=== PATIENT | female | born 2000 | race Caucasian/White ===

== ENCOUNTER 2018-09-08 14:43 | Observation (INO) | payer OTHER, SELFPAY ==
[2018-09-08 14:43] VITALS: BP 139/79; PULSE 110; RESP 20; TEMP 37.2; O2SAT 97
[2018-09-08 14:45] VITALS: BP 139/79; PULSE 110; RESP 20; TEMP 37.2; O2SAT 97
[2018-09-08] MEDS: Ibuprofen 600 MG TAB PO ×2 (16:22→22:27)
[2018-09-08] MEDS: Normal Saline 1,000 ML 30 ML IV (16:29)
--- NOTE | 2018-09-08 16:36 | HPE_ITS ---
DATE OF ADMISSION: September 08, 2018 PROBLEM LIST: 1. Cellulitis of face. 2. 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 ASSESSMENT: 1. Wendy is a 18-year-old young lady who presents with a cellulitis of her face that has been unresp onsive to outpatient therapy. Most likely this is Staph, Strep or a MRSA. She denies any history of cat bites, cat scratches, dog bites or dog scratches. This has gotten worse despite the Bactrim DS and I feel she needs to be admitted to the hospital for IV antibiotics. 2. Wendy has an irregular heartbeat and this has not been noted previously. We will get an EKG to e valuate this. She has been asymptomatic from this. PLAN: 1. Admit to the hospital. 2. We will get an IV in her with normal saline. 3. Wendy will be started on Ceftaroline, which will cover MRSA, Staph, Strep and some gram-negatives . This dosing will be 600 mg q12h. 4. I will check the results of her culture and as we get results, we will change her antibiotic to na rrow coverage, if possible. 5. We will have her apply warm, moist heat to her face. 6. We will obtain an EKG. HISTORY OF PRESENT ILLNESS: Wendy is a 18-year-old young lady who is being admitted to the hospital with a cellulitis of her face that has been unresponsive to outpatient therapy. Wendy had been well until last when she woke up with a little pimple on the skin above her left lip. She did not have any sores on her lips. She has had some cold sores in the past, but this was not typical. She squeezed it a bit and did not get any pus out. Over the next 24 to 48 hours t he redness got bigger and she developed some pus that really did not drain. [facility] and they looked at her but did not culture anything. She was put on Bactrim double-strength tablets at a dose of one tablet twice a day. Over the ensuing several days she has had continued swelling and redness of her upper lip that has not really improved and perhaps has enma en a little bit worse. There has been no drainage. She has put some heat on it without any real imp rovement. She has had some redness extending from the corner of her left lip extending down to her j aw, which is a bit sore. It was a bit more red yesterday, but it still continues to be red. She has not had any fevers. It has been a bit uncomfortable to eat, but she is drinking well. There has be en no drainage of any substance that is foul-tasting into her mouth. She has not had any tooth pain. She has not previously had any difficulties with skin infections. She has not been on any other tr eatment other than the antibiotics for this infection. Wendy is a student at [employer]. 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 She has otherwise been healthy. She gets Depo-Provera every twelve weeks. Her immunizat ions are up to date. She is not allergic to any medications, but when she does eat mangoes, she will get swelling of her mouth. She does not have an Epi pen and she has not had any problems with avoid ing mangoes. She has not previously been hospitalized overnight. She did have some vomiting and a m igraine headache a year ago, for which she received IV fluids and medications in the Emergency Room. Wendy denies any shortness of breath or dizziness. She has not previously noted to have an irregula r heartbeat and no one has ever mentioned this to her. She is able to exercise without any difficult ies. Wendy has not had any exposures to cats or dogs with bites or scratches. OBJECTIVE: Wendy weighs about 145 pounds. She is afebrile. Her blood pressure is 139/79. Her pul se is 110 and her respiratory rate is 20 with an 02 saturation of 97%. She is alert and in no distre ss. Her SKIN is pink and well-perfused. She has a lesion involving the skin above her LEFT UPPER LIP. This lesion is approximately 3 cm in l ength and about 2 cm in width. In the middle of it she has an area that is crusted with what looks l rafael to be some pus beneath it, that is probably about 3 mm x 7 mm in width and length. I was able to put a needle into it and I got a small amount of bloody material which was cultured and has been sen t to the lab. Most of the area is firm and it is not fluctuant. She has some swelling inside of her mouth and she has some swelling of the left upper lip. There is no sign of any drainage in the mout h. The gums look normal and there is no sign of any dental abscess. She has an area of faint erythe ma that is about a centimeter in width that extends from her left corner of her mouth down to the ang le of her jaw. This area is about 4 cm in length. This area is mildly tender to palpation. She humphreys s not have any submandibular or submental nodes. She has no anterior cervical adenopathy. Her mouth is moist. There are no lesions of the lip per se. Her TM's are proctor. Her extraocular movements are intact. Her NOSE is dry. Her nose is pierced on the left side and there is no redness. Her NECK is supple without adenopathy. CARDIAC exam reveals an irregular rhythm, which she has not previously noted. Her LUNGS are clear. Her ABDOMEN is soft and nontender.
[2018-09-08 19:22] VITALS: BP 159/70; PULSE 75; RESP 18; TEMP 36.8; O2SAT 99
--- NOTE | 2018-09-08 21:56 | NUR.NOTE ---
Nursing Note: PT. reports that the spot of cellulitis feels tighter, like it might start draining. Pt. reports no difficulty breathing, no changes in vision, no increase in pain at this time. Pt. given a warm compress for comfort.
[2018-09-08 23:50] VITALS: BP 117/75; PULSE 70; RESP 16; TEMP 36.7; O2SAT 98
[2018-09-09 07:50] VITALS: BP 111/69; PULSE 65; RESP 16; TEMP 37.1; O2SAT 98
--- NOTE | 2018-09-09 08:58 | INITIAL_ITS ---
- If Service Date Differs Date of service: 09/09/18 Time of Service: 08:56 Care Management Initial Assess REASON FOR HOSPITALIZATION:: Cellulitis PAST MEDICAL HISTORY/PAST SURGICAL HISTORY:: Migraines. 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 Her mother and siblings live locally. Wendy is indepedent with transportation and caring for herself. CURRENT FUNCTIONAL STATUS:: Wendy makes good eye contact. She continues to have some swelling near her left side of her mouth where the cellutlis is. She states she went to Urgent Care in [place], [place] prior to returning home to see her primary care. She states the area is much improved since starting the IV antibioitcs. Wendy is planning on returning to school in the next few days. 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 Her Mom is here during assessment and supportive at the bedside. ADVANCE DIRECTIVES:: None on file Has patient been provided with information about the portal?: Yes Did the patient sign up for the portal?: No CODE STATUS:: Full Code INSURANCE COVERAGE / FINANCIAL ISSUES:: [place] [employer] CURRENT HOME/COMMUNITY SERVICES/EQUIPMENT:: None PRIMARY CARE PHYSICIAN:: POTENTIAL DISCHARGE NEEDS:: Follow up with primary care provider as directed and oral antibiotics. PATIENT/FAMILY EDUCATION NEEDS:: Discharge education, limitations and medications as directed. ANTICIPATED BARRIERS TO DISCHARGE:: None idenified TRANSPORTATION:: Via private car with family at time of discharge. PLAN:: Wendy is currently receiving IV antibiotics awaiting c/s results. She would like to return to school in the next few days. She will need a note for school at time of discharge. Anticipate she will need oral antibiotics at time of discharge and follow up with primary care as directed.
[2018-09-09 11:44] VITALS: BP 118/66; PULSE 89; RESP 18; TEMP 36.9; O2SAT 97
--- NOTE | 2018-09-09 15:05 | DSE_ITS ---
DATE OF ADMISSION: September 08, 2018 DATE OF DISCHARGE: September 09, 2018 PROBLEM: Cellulitis. HISTORY: Wendy is a 18-year-old young lady who was admitted to the hospital yesterday with a cellul itis of her face that had been unresponsive to outpatient therapy. She had developed a pimple about five days prior to admission, which got larger and three days prior to admission she was seen at an [facility] and placed on Bactrim DS twice a day. Over the ensuing days the lesion got more tender an d sore. She had no fever. I saw her in my office. We were able to get a small bit of pus out and t roxana I admitted her for IV antibiotics. She was placed on Ceftaroline and she has been receiving 600 mg every twelve hours. She has also bee n putting warm compresses to the lesion and there has been a small amount of drainage from it. Overn ight and during the day today she has had improvement in the lesion. It is not as big and it is much less sore. She had some red streaking extending from the lesion down to her chin and that has now g one. The abscess culture from admission has grown a small amount of Staph that was going to be typed today . OBJECTIVE: Wendy is alert and in no distress. Her vital signs are within normal limits. She has a cellulitis of her face above her left upper lip. This area is about 1 x 2 cm. It is purpl e-red in color. There is a small amount of scabbing and a small amount of discharge from it. It is firm and indurated. It is mildly tender. There is no redness extending from this lesion down to her jaw as there was yesterday. She has an irregular rhythm when palpating her pulse. An EKG was obtained yesterday and it shows a sinus rhythm with normal axes. She has intermittent uni focal PVC's. No rhythm strip was done, as ordered. ASSESSMENT: 1. Wendy is a young lady with a cellulitis of her face that has responded well to the IV antibiotics . It appears that a small amount of Staph is growing and I don't know if this is MRSA or sensitive t o methicillin and I will try to check on that. She has responded well to the IV antibiotics and we'r e going to give her one more dose, which will cover her for another twelve hours, and I am going to cole schmidt send her home on Cephalexin at a dose of 500 mg q.i.d. and Bactrim DS at a tablet twice a day. T will cover Staph, Strep and MRSA. 2. She should continue with warm soaks. 3. I will see her back in my office in three days, or sooner if she is having problems. 4. I will talk to a laboratory specialist about her EKG and whether any further evaluation needs to be perform ed.
[2018-09-09 16:17] VITALS: BP 121/66; PULSE 69; RESP 18; TEMP 37.6; O2SAT 95
== END 2018-09-09 18:37 | disposition home or self-care (01) ==
PROVIDERS: Admitting Provider Pediatrics; PCP Pediatrics; Visit Provider Pediatrics
DX: L03.211 Cellulitis of face (principal); I49.3 Ventricular premature depolarization; B95.61 Methicillin susceptible Staphylococcus aureus infection as the cause of diseases classified elsewhere; Z91.018 Allergy to other foods
CPT/HCPCS: 87077; 87070; 87186; 87205; 93005; 93010; G0378; J0712

== ENCOUNTER 2020-02-02 12:06 | Outpatient (REF) | payer OTHER, SELFPAY ==
--- NOTE | 2020-02-02 11:45 | PAPFT_PTH ---
PATIENT: Wendy Garcia LOC: [facility] U#:[id number] AGE/SX: 19/F ROOM: RE02/02/[address]: HECTOR Kumar : 2000 BED: DIS: 02/02/2020 SPEC #: [id number] RECD: 02/02/20 16:25 STATUS: MAMADOU REMaryjane #: [id number] YUMIKO: 02/02/20 11:[address]: Sera Ram DEPT: [facility] Cytology RECD BY: Nga Briones ENTERED: 02/02/20 16:25 SP TYPE: PAPFT OTHR DR: Dwight Burks MD Tissues: 1 - CX/ENDOCX FOR PAP SMEARS Procedures: PAP THIN PREP/UVM Screening Comments: [id number]
[2020-02-03 13:45] LABS: Chlamydia Result Negative (Negative); GC Result Negative (Negative)
== END 2020-02-02 12:26 ==
LOC: LBN 12:06
PROVIDERS: PCP Pediatrics; Visit Provider Nurse Practitioner Family
DX: Z11.3 Encounter for screening for infections with a predominantly sexual mode of transmission (principal); Z12.4 Encounter for screening for malignant neoplasm of cervix
CPT/HCPCS: 87491; 87591; 88142

== ENCOUNTER 2020-12-05 13:02 | Outpatient (REF) | payer OTHER, SELFPAY | END 2020-12-05 13:03 | disposition home or self-care (01) | LOC: LBN 13:02 | PROVIDERS: PCP Pediatrics; Visit Provider Nurse Practitioner Family | DX: N39.0 Urinary tract infection, site not specified (principal) | CPT/HCPCS: 87077; 87086; 87186 ==

== ENCOUNTER 2020-12-05 20:54 | Emergency (ER) | payer OTHER, SELFPAY ==
[2020-12-05 21:03] VITALS: BP 120/74; PULSE 74; RESP 16; TEMP 37.2; O2SAT 98
[2020-12-05 21:11] LABS: Bilirubin Negative (Negative); Blood Small (Negative); Glucose Negative (Negative); Ketones Negative (Negative); Leukocyte Esterase Small (Negative); Nitrite Negative (Negative); Urobilinogen 0.2 EU/dL (Up TO 0.2)
--- NOTE | 2020-12-05 21:18 | W.ED.GENAD ---
Discharge Plan Disposition Patient Disposition: HOME Condition: Improving Discharge Details Clinical Impression: UTI (urinary tract infection) Primary Care Provider: Dwight Burks ED Provider: Sb Moy Home Meds and New Rx's Prescriptions: New cephalexin 500 mg capsule 500 mg PO TID 7 Days Qty: 21 RF: 0 Continued medroxyprogesterone [Depo-Provera] 150 mg/mL suspension 150 mg IM Q 12 WEEKS Qty: 1 RF: 3 Discharge Instructions Instructions: Urinary Tract Infection in Women (ED) Additional Instructions: Small, frequent sips of fluids so that you maintain good hydration. Please stop the previously prescribed antibiotic, Bactrim. We will place you on the drug cephalexin/Keflex with first dose tomorrow. Use the provided Zofran if needed for nausea. Home to rest this evening. Return the emergency department for any acute concerns. May slowly advance a bland diet. Medical Decision Making This is a 20-year-old female who presents with complaint of burning and frequency of urination over nearly 1 week's time. She also states that she has had some postprandial emesis. No noted fever at home. She is otherwise been well. Patient arrives to the ER afebrile, interactive. She does demonstrate mild suprapubic tenderness on exam. Differential diagnosis includes dehydration, urinary tract infection. Must exclude biliary colic. IV access was established, patient given fluids and antiemetics. Her blood work reveals a white count of 10, adequate 41 platelets 335. Chemistries with potassium noted slightly low at 3.4. LFTs unremarkable. Positive leuk esterase in the urine. Consistent with partially treated urinary tract infection. Patient improving with fluids and antiemetic. She is given 1 g of ceftriaxone IV and I will switch her from Bactrim to Keflex as an outpatient. Lab Data Lab results reviewed: Yes I reviewed the patient's lab results. Labs: Laboratory Results - last 24 hr 12/05/20 12/05/20 12/05/20 21:04 21:20 21:20 WBC 10.50 RBC 4.71 Hgb 13.9 Hct 41.7 MCV 88.5 MCH 29.5 MCHC 33.3 RDW 12.4 Plt Count 335 MPV 9.7 Immature Gran % 0.1 Neutrophils % 58.3 Lymphocytes % 31.8 Monocytes % 8.4 Eosinophils % 0.8 Basophils % 0.6 Nucleated RBC % 0 Absolute Neutrophils 6.13 Absolute Lymphocytes 3.34 Absolute Monocytes 0.88 H Absolute Eosinophils 0.08 Absolute Basophils 0.06 Sodium 142 Potassium 3.4 L Chloride 106 Carbon Dioxide 23.9 Anion Gap 12.1 H BUN 6 L Creatinine 0.7 Estimated GFR/1.73 m2 >= 60.00 Glucose 97 Calcium 9.3 Total Bilirubin 0.8 AST 14 L ALT 18 Alkaline Phosphatase 61 Total Protein 7.5 Albumin 4.3 Urine Color Yellow Urine Clarity Sl Cloudy Urine pH 7.0 Ur Specific [place] 1.010 Urine Protein Negative Urine Ketones Negative Urine Blood Small H Urine Nitrite Negative Urine Bilirubin Negative Urine Urobilinogen 0.2 Ur Leukocyte Esterase Small H Urine RBC 0-2 Urine WBC 5-10 Ur Epithelial Cells Few Urine Crystals Negative Urine Bacteria Few Urine Casts Negative Urine Mucus Negative Ur Culture Indicated? Yes Urine Glucose Negative HPI General Mode of arrival: ambulatory. Date/Time Provider Initiated Documentation: 12/05/20 20:57. Limitations to Documentation: no limitations. Information obtained by: patient. History of Present Illness 20 year old F presents to the emergency department with the chief complaint of Urinary urgency, frequency, burning. Vomiting after eating, Quality is described as burning, and is localized to the pelvis and genitals. Patient started experiencing this day(s) No relieving factors improve symptom(s), No exacerbating factors reported . Patient notes loss of appetite and nausea/vomiting; denies fever/chills. Patient did receive the following treatments prior to arrival, other (1 dose of Bactrim) Related Data Home Medications Medication Instructions Recorded Confirmed medroxyprogesterone 150 mg/mL 150 mg IM Q 12 WEEKS #1 vial 02/02/20 12/05/20 intramuscular suspension cephalexin 500 mg PO TID 7 Days #21 cap 12/05/20 Previous Rx's Medication Instructions Recorded medroxyprogesterone 150 mg/mL 150 mg IM Q 12 WEEKS #1 vial 02/02/20 intramuscular suspension cephalexin 500 mg PO TID 7 Days #21 cap 12/05/20 Allergies Allergy/AdvReac Type Severity Reaction Status Date / Time No Known Allergies Allergy Verified 12/05/20 12:39 General Stated Complaint: Urinary OLINDA: 3 Review of Systems Narrative: No vaginal bleeding or discharge, otherwise well. 6 systems reviewed and negative. [facility] Medical History Cellulitis Face/L upper lip - ADMIT [facility] IV ANTIBIOTICS staph History of UTI Irregular heart beat Noted with admission for cellulits 09/08/18 EKG - inifocal pvcs- cardilogy said ok to watch if not having symptoms carlito allergy Menorrhagia Menstrual migraine Smoker in home outside S[place] EKG DONE 2007 - WITH FREQ PAC'S Wears glasses Surgical History wisdom tooth extraction 11/2014 Family History Mother Healthy adult Father Suicide Other Myocardial infarction maternal great uncles x4- sudden cardiac in 40s Maternal Uncle Myocardial infarction maternal uncle- sudden cardiac in 40s Brother Asthma exercise induced Social History Smoking/Tobacco Use Status: Never Smoking risk assessment performed?: Yes Alcohol Intake: current Alcohol Intake frequency: a few times a week Drug use: Never Substance use type: does not use Do you feel safe at home: Yes Do you feel safe in your relationship?: Yes Exam Narrative Exam Narrative: GEN: awake, alert, oriented 3. Pleasant, well groomed, interactive. HEAD: Normocephalic, atraumatic EYES: PERRL, EOMI NECK: Full ROM, no SARANYA, no menigismus CHEST/RESP: Nontender, clear to auscultation bilateral, no wheeze/rhonchi/rales CARDIOVASCULAR: RRR, 2+ Rad pulse bilateral ABDOMEN: Soft, suprapubic tenderness, no mass. +Bowel sounds EXT: Full ROM, no edema, no rash Neuro: Grossly normal neurologic exam, conversant, interactive. Psych: Speech fluent, thoughts congruent, affect normal Course Vital Signs Vital signs: Vital Signs Temperature 37.2 C 12/05/20 21:03 Pulse 74 12/05/20 21:03 Respiratory Rate 16 12/05/20 21:03 Blood Pressure 120/74 12/05/20 21:03 Pulse Oximetry 98 12/05/20 21:03 Temperature 37.2 C 12/05/20 21:03 Temperature Source Oral 12/05/20 21:03 Pulse 74 12/05/20 21:03 Respiratory Rate 16 12/05/20 21:03 Respiratory Effort Non-Labored 12/05/20 21:11 Blood Pressure 120/74 12/05/20 21:03 Blood Pressure Position Sitting 12/05/20 21:03 Pulse Oximetry 98 12/05/20 21:03 Oxygen Delivery Method Room Air 12/05/20 21:03 Oxygen Flow Rate 0 12/05/20 21:03 Pain Level 4 12/05/20 21:13 Lab/Test Results Lab/Test Results: POC- Test(urine) Negative
[2020-12-05] MEDS: Normal Saline 1,000 ML 1000 ML IV (21:25)
[2020-12-05 21:26] LABS: Clarity Sl Cloudy (Clear)
[2020-12-05 21:27] LABS: Bacteria Few HPF (Negative); C & S Indicated? Yes; Casts Negative LPF (Negative); Crystals Negative HPF (Negative); Epithelial Cells Few HPF (Negative); Mucus Negative (Negative); RBC 0-2 HPF (0-2)
[2020-12-05 21:32] LABS: Abs Immature Grans 0.01 10^3/uL (0.0-0.06); Absolute Basophil Count 0.06 10^3/uL (0.0-0.2); Absolute Eosinophil Count 0.08 10^3/uL (0.0-0.7); Absolute Lymphocyte Count 3.34 10^3/uL (1.2-3.4); Absolute Monocyte Count 0.88 10^3/uL (0.1-0.8); Absolute Neutrophil Count 6.13 10^3/uL (1.2-6.7); Basophils % 0.6; Eosinophils % 0.8; HCT 41.7 % (36.0-46.0); HGB 13.9 g/dL (11.2-15.7); Immature Grans % 0.1; Lymphocytes % 31.8; MCH 29.5 pg (27.0-33.0); MCHC 33.3 % (32.0-36.0); MCV 88.5 fL (80-95); MPV 9.7 fL (8.0-11.0); Monocytes % 8.4; Neutrophils % 58.3; Nucleated RBC 0 %; Platelet Count 335 10^3/uL (130-400); RBC 4.71 10^6/uL (3.93-5.22); RDW 12.4 % (11.7-14.6); RDW-SD 40.5 fL
[2020-12-05] MEDS: Ondansetron 4 MG/2 ML VIAL IVP ×2 (21:47→22:49)
[2020-12-05 21:56] LABS: ALT 18 U/L (14-59); AST 14 U/L (15-37); Albumin 4.3 g/dL (3.4-5.0); Alkaline Phosphatase 61 U/L (46-116); Anion Gap 12.1 mmol/L (3-11); BUN 6 mg/dL (7-18); Bilirubin, Total 0.8 mg/dL (0.2-1.0); CO2 23.9 mmol/L (21.0-32.0); CREATININE 0.7 mg/dL (0.55-1.02); Calcium 9.3 mg/dL (8.5-10.1); Chloride 106 mmol/L (98-107); Glucose 97 mg/dL (74-106); Potassium 3.4 mmol/L (3.5-5.1); Sodium 142 mmol/L (136-145); Total Protein 7.5 g/dL (6.4-8.2)
[2020-12-05] MEDS: cefTRIAXone 1 GM/50 ML BAG IVPB (22:07)
[2020-12-05 22:50] VITALS: BP 111/65; PULSE 52; RESP 16; TEMP 36.9; O2SAT 99
[2020-12-05] MEDS: Ondansetron O.D.T. 4 MG TABEF, 3 TABS/BTL PO (22:50)
--- NOTE | 2020-12-07 06:37 | NUR.NOTE ---
Nursing Note: Patient placed on care management referral to establish adult PCP per Dr. Moy.
--- NOTE | 2020-12-08 10:58 | PDOC.ERCMPRO ---
- If Service Date Differs Date of service: 12/08/20 Time of Service: 10:58 Care Management Progress Note Wendy is seen in the ED for a UTI on 12/05/20. At the request of ED provider, CAROLYN coordinates a referral to HECTOR Dickson, of [facility], on-call provider, to assist Wendy in obtaining a follow up appointment and in establishing care with a PCP. She has [employer] for insurance.
== END 2020-12-05 22:50 | disposition home or self-care (01) ==
PROVIDERS: Emergency Provider Emergency Medicine; PCP Pediatrics
DX: N39.0 Urinary tract infection, site not specified (principal)
CPT/HCPCS: 36415; 80053; 81025; 87077; 96361; 96365; 96375; 99284; 81003; 81015; 85025; 87086; 87186; 99283; J0696; J2405; J3490

== ENCOUNTER 2021-01-23 18:57 | Outpatient (REF) | payer OTHER, SELFPAY ==
[2021-01-25 13:55] LABS: COVID-19 RT-PCR UVMMC Result Negative (Negative)
== END 2021-01-23 18:58 | disposition home or self-care (01) ==
LOC: LBN 18:57
PROVIDERS: PCP Pediatrics; Visit Provider Physician Assistant
DX: J02.9 Acute pharyngitis, unspecified (principal); Z20.822 Contact with and (suspected) exposure to COVID-19
CPT/HCPCS: U0003; 87070; 87186

== ENCOUNTER 2021-01-27 15:32 | Emergency (ER) | payer OTHER, SELFPAY ==
[2021-01-27 15:37] VITALS: BP 110/69; PULSE 99; RESP 18; TEMP 36.8; O2SAT 98
[2021-01-27 15:50] LABS: Bilirubin Negative (Negative); Blood Negative (Negative); Clarity Clear (Clear); Glucose Negative (Negative); Ketones 40 mg/dL (Negative); Leukocyte Esterase Negative (Negative); Nitrite Negative (Negative); Urobilinogen 0.2 EU/dL (Up TO 0.2); pH 5.5 (5-8)
--- NOTE | 2021-01-27 16:03 | ED.GENADUL_ITS ---
Discharge Plan Disposition Patient Disposition: HOME Condition: Improving Discharge Details Clinical Impression: Abdominal pain, vomiting, and diarrhea Primary Care Provider: Dwight Burks ED Provider: Dali Groves Home Meds and New Rx's Prescriptions: New sucralfate [Carafate] 1 gram tablet 1 gm PO QACHS Qty: 14 RF: 0 famotidine [Pepcid] 20 mg tablet 20 mg PO DAILY Qty: 14 RF: 0 ondansetron 4 mg tablet,disintegrating 4 mg PO TID PRN (Reason: nausea and vomiting) Qty: 6 RF: 0 Continued medroxyprogesterone [Depo-Provera] 150 mg/mL suspension 150 mg IM Q 12 WEEKS Qty: 1 RF: 3 Discharge Instructions Instructions: Acute Nausea and Vomiting (ED), Acute Diarrhea (ED), Abdominal Pain (ED) Additional Instructions: Drink plenty of fluids and get plenty of rest. Alternate tylenol and motrin as needed and directed for pain. Your prescriptions have been sent electronically to your pharmacy. Call the pharmacy to make sure your prescriptions is ready before pickup. Take the prescription as directed. Follow-up with your primary care doctor in 1 week and for referral to general surgery if your symptoms do not improve or worsen for further evaluation or consideration for upper endoscopy. Return to the emergency department with any worsening or new concerning symptoms. Referrals: Jessie Ingram MD [ [facility] STAFF PHYSICIAN] - Discharge Data Discharge Physician: Dali Groves Medical Decision Making 20-year-old female presents with 3 days of epigastric pain, vomiting and diarrhea. Vitals within normal limits. Patient appears minimally uncomfortable but nontoxic. Her abdomen is soft without guarding or rigidity but mildly tender in the epigastrium. Suspect most likely viral GI related illness including gastroenteritis, gastritis, colitis. As she is minimally tender in epigastrium, do not feel indication for CT imaging. Will place an IV, bolus IV fluids, screening labs, urine and give GI cocktail, Pepcid and Zofran and reassess. Labs and imaging reviewed. White blood cell count normal at 8. Normal electrolytes. Normal lipase. Urine no ketones. Urine test negative. Patient reassessed and she feels much better. She was able to tolerate p.o. without further nausea vomiting. Of note, patient was seen to the urgent care 4 days ago for Covid testing as she had a recent exposure but this was negative. She had also complained of sore throat at that time and they obtained a strep test which was negative. Review of her chart notes that her throat culture grew Pseudomonas from 2 days ago. Her oropharynx appears normal for infection. This result was discussed with Dr. Johnson who noted that this likely could be due to well water or farming exposure if she swallowed water. Discussed with patient and she denies any recent swimming but as she has a normal oropharynx and does not complain of a significantly sore throat, he did not recommend repeat throat culture or treatment. We will send prescriptions for Carafate, Pepcid and Zofran electronically to her pharmacy. She was given Zofran to go. She was given surgery follow-up information if needed for further evaluation or upper endoscopy if her symptoms do not improve or worsen. Usual and customary return precautions given prior to discharge. Medical Records Medical records reviewed: Yes I reviewed the patient's medical records. Lab Data Lab results reviewed: Yes I reviewed the patient's lab results. Labs: Laboratory Tests Range/Units 01/27/21 01/27/21 01/27/21 15:45 15:55 15:55 WBC (4.4-10.8) 10^3/uL 8.50 RBC (3.93-5.22) 10^6/uL 5.03 Hgb (11.2-15.7) g/dL 14.7 Hct (36.0-46.0) % 45.3 MCV (80-95) fL 90.1 MCH (27.0-33.0) pg 29.2 MCHC (32.0-36.0) % 32.5 RDW (11.7-14.6) % 12.8 Plt Count (130-400) 10^3/uL 361 MPV (8.0-11.0) fL 9.8 Immature Gran % 0.2 Neutrophils % 66.3 Lymphocytes % 21.9 Monocytes % 10.2 Eosinophils % 0.9 Basophils % 0.5 Nucleated RBC % % 0 Absolute Neutrophils (1.2-6.7) 10^3/uL 5.63 Absolute Lymphocytes (1.2-3.4) 10^3/uL 1.86 Absolute Monocytes (0.1-0.8) 10^3/uL 0.87 H Absolute Eosinophils (0.0-0.7) 10^3/uL 0.08 Absolute Basophils (0.0-0.2) 10^3/uL 0.04 Sodium (136-145) mmol/L 141 Potassium (3.5-5.1) mmol/L 3.5 Chloride (98-107) mmol/L 105 Carbon Dioxide (21.0-32.0) mmol/L 25.3 Anion Gap (3-11) mmol/L 10.7 BUN (7-18) mg/dL 10 Creatinine (0.55-1.02) mg/dL 0.7 Estimated GFR/1.73 m2 (mL/min/1.73m2) >= 60.00 Glucose (74-106) mg/dL 91 Calcium (8.5-10.1) mg/dL 9.3 Total Bilirubin (0.2-1.0) mg/dL 0.4 AST (15-37) U/L 15 ALT (14-59) U/L 19 Alkaline Phosphatase (46-116) U/L 65 Total Protein (6.4-8.2) g/dL 7.6 Albumin (3.4-5.0) g/dL 4.3 Lipase (73-393) U/L 89 Urine Color (Yellow) Yellow Urine Clarity (Clear) Clear Urine pH (5-8) 5.5 Ur Specific [place] (1.005-1.025) 1.020 Urine Protein (Negative) mg/dL Negative Urine Ketones (Negative) mg/dL 40 H Urine Blood (Negative) Negative Urine Nitrite (Negative) Negative Urine Bilirubin (Negative) Negative Urine Urobilinogen (Up TO 0.2) EU/dL 0.2 Ur Leukocyte Esterase (Negative) Negative Urine Glucose (Negative) mg/dL Negative HPI General Mode of arrival: ambulatory . Date/Time Provider Initiated Documentation: 01/27/21 15:44 . Limitations to Documentation: no limitations . Information obtained by: patient . HPI Narrative: Patient is a 20-year-old female who presents to the ED with complaint of upper abdominal pain, nausea, vomiting and diarrhea for the past 2 days. Patient states her symptoms started with epigastric pain 2 days ago then she started with multiple episodes of vomiting and diarrhea, with 5 episodes of clear and bilous vomiting and several episodes of watery brown diarrhea overnight. She states her abdominal pain is constant, dull and currently 3/10, but is sharp and 10/10 at its worst. She took Imodium and Pepto-Bismol today without relief. She denies any fever, chest pain, shortness of breath, urinary symptoms, recent travel, recent antibiotics, recent known sick contacts. Related Data Home Medications Medication Instructions Recorded Confirmed medroxyprogesterone 150 mg/mL 150 mg IM Q 12 WEEKS #1 vial 02/02/20 01/27/21 intramuscular suspension famotidine [Pepcid] 20 mg PO DAILY #14 tab 01/27/21 ondansetron 4 mg PO TID PRN #6 tab 01/27/21 sucralfate [Carafate] 1 gm PO QACHS #14 tab 01/27/21 Previous Rx's Medication Instructions Recorded medroxyprogesterone 150 mg/mL 150 mg IM Q 12 WEEKS #1 vial 02/02/20 intramuscular suspension famotidine [Pepcid] 20 mg PO DAILY #14 tab 01/27/21 ondansetron 4 mg PO TID PRN #6 tab 01/27/21 sucralfate [Carafate] 1 gm PO QACHS #14 tab 01/27/21 Allergies Allergy/AdvReac Type Severity Reaction Status Date / Time No Known Allergies Allergy Verified 01/27/21 15:40 General Stated Complaint: Abd Prob OLINDA: 3 Review of Systems All systems reviewed & are unremarkable except as noted in HPI and below Constitutional Constitutional: Reports as per HPI, Denies chills and Denies fever(s) Eyes Eyes: Denies blurry vision ENT Ears, Nose, Mouth, and Throat: Denies dizziness, Denies sore throat and Denies throat swelling Cardiovascular Cardiovascular: Denies chest pain and Denies dyspnea Respiratory Respiratory: Denies cough and Denies dyspnea Gastrointestinal Gastrointestinal: Reports abdominal pain, Reports diarrhea and Reports vomiting Genitourinary Genitourinary: Denies hematuria and Denies dysuria Musculoskeletal Musculoskeletal: Denies back pain and Denies numbness Integumentary/Breasts Skin/Breast: Denies lesions and Denies rash Neurologic Neurologic: Denies dizziness, Denies localized weakness and Denies numbness Allergic/Immunologic Allergic/Immunologic: Denies throat swelling [facility] Medical History Cellulitis Face/L upper lip - ADMIT [facility] IV ANTIBIOTICS staph History of UTI Irregular heart beat Noted with admission for cellulits 09/08/18 EKG - inifocal pvcs- cardilogy said ok to watch if not having symptoms [place] allergy Menorrhagia Menstrual migraine Smoker in home outside [place] EKG DONE 2007 WITH FREQ PAC'S Wears glasses Surgical History wisdom tooth extraction 11/2014 Family History Mother Healthy adult Father Suicide Other Myocardial infarction maternal great uncles x4- sudden cardiac in 40s Maternal Uncle Myocardial infarction maternal uncle- sudden cardiac in 40s Brother Asthma exercise induced Social History Smoking/Tobacco Use Status: Never Smoking risk assessment performed?: Yes Alcohol Intake: current Alcohol Intake frequency: a few times a week Drug use: Never Substance use type: does not use Do you feel safe at home: Yes Do you feel safe in your relationship?: Yes Exam Const General: cooperative, healthy appearing and no acute distress HENMT Head: normal to inspection Ears: hearing grossly normal bilaterally, external ears normal and TM's normal bilaterally Face and sinus: normal facial exam Mouth: oral mucosae normal Throat: posterior oropharynx normal Eyes General: appearance normal, both eyes and all related structures EOM: EOM intact bilaterally Neck Neck: normal visual inspection and No submandibular swelling Lymphatic: no lymphadenopathy noted Chest Chest: normal inspection of the chest and no tenderness Resp Effort & Inspection: normal respiratory effort and able to speak in complete sentences Auscultation: clear to auscultation bilaterally Cardio Rate: regular rate Rhythm: regular rhythm GI Inspection: normal to inspection Palpation: soft, not firm, not rigid and tender in the epigastrum Auscultation: hypoactive bowel sounds Skin General skin exam: no rashes or lesions noted Neuro General: patient alert, patient awake and patient oriented x3 Cognition: normal cognition Speech: speech normal Motor: muscle tone normal throughout Sensory Exam: no sensory deficits noted Extrem General: normal to inspection, full ROM, capillary refill normal, no calf tenderness bilaterally and no edema Psych Appearance: grossly normal Mental Status: mental status grossly normal Speech and Movement: speech and movement normal Affect: normal affect Course Vital Signs Vital signs: Vital Signs Temperature 98.2 F 01/27/21 15:37 Pulse 99 H 01/27/21 15:37 Respiratory Rate 18 01/27/21 15:37 Blood Pressure 110/69 01/27/21 15:37 Pulse Oximetry 98 01/27/21 15:37 Temperature 98.2 F 01/27/21 15:37 Temperature Source Skin 01/27/21 15:37 Pulse 99 H 01/27/21 15:37 Respiratory Rate 18 01/27/21 15:37 Respiratory Effort Non-Labored 01/27/21 15:40 Blood Pressure 110/69 01/27/21 15:37 Blood Pressure Position Sitting 01/27/21 15:37 Pulse Oximetry 98 01/27/21 15:37 Oxygen Delivery Method Room Air 01/27/21 15:37 Oxygen Flow Rate 0 01/27/21 15:37 Pain Level 6 01/27/21 15:37 Lab/Test Results Lab/Test Results: POC- Test(urine) Negative
[2021-01-27 16:17] LABS: Abs Immature Grans 0.02 10^3/uL (0.0-0.06); Absolute Basophil Count 0.04 10^3/uL (0.0-0.2); Absolute Eosinophil Count 0.08 10^3/uL (0.0-0.7); Absolute Lymphocyte Count 1.86 10^3/uL (1.2-3.4); Absolute Monocyte Count 0.87 10^3/uL (0.1-0.8); Absolute Neutrophil Count 5.63 10^3/uL (1.2-6.7); Basophils % 0.5; Eosinophils % 0.9; HCT 45.3 % (36.0-46.0); HGB 14.7 g/dL (11.2-15.7); Immature Grans % 0.2; Lymphocytes % 21.9; MCH 29.2 pg (27.0-33.0); MCHC 32.5 % (32.0-36.0); MCV 90.1 fL (80-95); MPV 9.8 fL (8.0-11.0); Monocytes % 10.2; Neutrophils % 66.3; Nucleated RBC 0 %; Platelet Count 361 10^3/uL (130-400); RBC 5.03 10^6/uL (3.93-5.22); RDW 12.8 % (11.7-14.6); RDW-SD 42.3 fL
[2021-01-27 16:26] LABS: ALT 19 U/L (14-59); AST 15 U/L (15-37); Albumin 4.3 g/dL (3.4-5.0); Alkaline Phosphatase 65 U/L (46-116); Anion Gap 10.7 mmol/L (3-11); BUN 10 mg/dL (7-18); Bilirubin, Total 0.4 mg/dL (0.2-1.0); CO2 25.3 mmol/L (21.0-32.0); CREATININE 0.7 mg/dL (0.55-1.02); Calcium 9.3 mg/dL (8.5-10.1); Chloride 105 mmol/L (98-107); Glucose 91 mg/dL (74-106); Lipase 89 U/L (73-393); Potassium 3.5 mmol/L (3.5-5.1); Sodium 141 mmol/L (136-145); Total Protein 7.6 g/dL (6.4-8.2)
[2021-01-27] MEDS: Ondansetron 4 MG/2 ML VIAL IVP (16:38)
[2021-01-27] MEDS: Normal Saline 1,000 ML 1000 ML IV (16:38)
[2021-01-27] MEDS: FAMOTIDINE 20 MG/50 ML BAG 200 MG IVPB (16:38)
[2021-01-27 18:07] VITALS: BP 107/63; PULSE 72; RESP 18; TEMP 36.7; O2SAT 99
[2021-01-27] MEDS: Ondansetron O.D.T. 4 MG TABEF, 3 TABS/BTL PO (18:08)
[2021-01-27] MEDS: Sucralfate 1 GM TAB PO (18:09)
== END 2021-01-27 18:13 | disposition home or self-care (01) ==
PROVIDERS: Emergency Provider Physician Assistant; PCP Pediatrics
DX: R10.13 Epigastric pain (principal); R11.2 Nausea with vomiting, unspecified; R19.7 Diarrhea, unspecified
CPT/HCPCS: 36415; 80053; 81025; 83690; 96361; 96365; 96375; 99284; 81003; 85025; J2405

== ENCOUNTER 2022-05-01 16:43 | Outpatient (REF) | payer OTHER, SELFPAY ==
[2022-05-02 14:13] LABS: Chlamydia Result Negative (Negative); GC Result Negative (Negative)
== END 2022-05-01 16:44 | disposition home or self-care (01) ==
LOC: LBN 16:43
PROVIDERS: PCP Pediatrics; Visit Provider Nurse Practitioner Women's Health
DX: Z11.3 Encounter for screening for infections with a predominantly sexual mode of transmission (principal)
CPT/HCPCS: 87491; 87591